=== PATIENT | female | born 1960 | race Hispanic/Latino ===

== ENCOUNTER 2024-11-10 07:25 | Emergency (ER) | payer MEDICARE, MEDICAID ==
[~2024-11-10] VITALS: Ht 121.9 cm; Wt 47.7 kg
[2024-11-10 08:52] LABS: BASO % 0.5 % (0.0-1.0); EOS # 0.1 10^3/uL (0.0-0.5); EOS % 1.1 % (0.0-3.0); HEMOGLOBIN 15.3 g/dl (12.0-15.5); LYMPH # 0.6 10^3/uL (1.5-5.0); LYMPH % 11.4 % (24.0-44.0); MEAN CORPUSCULAR HEMOGLOBIN 32.7 pg (27.0-33.0); MEAN CORPUSCULAR VOLUME 96.2 fl (80.0-96.0); MONO # 0.4 10^3/uL (0.0-0.8); MONO % 6.7 % (2.0-8.0); NEUTROPHILS # 4.5 10^3/uL (1.5-8.5); NEUTROPHILS % 79.8 % (36.0-66.0); PLATELET COUNT, AUTOMATED 189 10^3/uL (150-450); RED BLOOD COUNT 4.68 10^6/uL (4.00-5.40); WHITE BLOOD COUNT 5.6 10^3/uL (4.0-10.0)
[2024-11-10] MEDS ORDERED: MULT400T10 PO (08:58)
[2024-11-10] MEDS ORDERED: OYST500T12 PO (09:05)
[2024-11-10] MEDS ORDERED: FLON1SPR NARES (09:05)
[2024-11-10] MEDS ORDERED: GENT1SOL17 OU (09:05)
[2024-11-10] MEDS ORDERED: LORA-1041 PO (09:05)
[2024-11-10] MEDS ORDERED: FAMO20TA PO (09:05)
[2024-11-10] MEDS ORDERED: RALO1TAB PO (09:05)
[2024-11-10] MEDS ORDERED: LEVO75TA4 PO (09:05)
[2024-11-10] MEDS ORDERED: DEBR6.5S4 OTIC (09:24)
[2024-11-10] MEDS ORDERED: BISA10SU PR (09:24)
[2024-11-10] MEDS ORDERED: ACET1TAB55 PO (09:24)
[2024-11-10] MEDS ORDERED: IBUP-1114 PO (09:24)
[2024-11-10] MEDS ORDERED: BACI500O8 TOP (09:24)
[2024-11-10] MEDS ORDERED: ACET650S3 PR (09:24)
[2024-11-10] MEDS ORDERED: MILKSUS3 PO (09:24)
[2024-11-10] MEDS ORDERED: POLYTRIM OP (09:24)
[2024-11-10] MEDS ORDERED: PROC2.5C TOP (09:24)
[2024-11-10] MEDS ORDERED: [UNRECOGNIZED DRUG - CODE] TOP (09:24)
[2024-11-10] MEDS ORDERED: FLEEENE12 PR (09:24)
[2024-11-10] MEDS ORDERED: LAMI1SPR EXT (09:28)
[2024-11-10] MEDS: NS 500 ML IV ONE (09:30)
[2024-11-10] MEDS ORDERED: HOME MED LIST COMPLETE! XX SCH (09:35)
[2024-11-10 10:33] LABS: BLOOD UREA NITROGEN 19 MG/DL (9-23); CALCIUM LEVEL 8.7 MG/DL (8.3-10.6); CARBON DIOXIDE LEVEL 31 MMOL/L (20-31); CHLORIDE LEVEL 101 MMOL/L (98-107); CREATININE FOR GFR 0.78 MG/DL (0.55-1.30); GLOMERULAR FILTRATION RATE > 60.0 (>45); GLUCOSE, FASTING 109 MG/DL (74-106); SODIUM LEVEL 140 MMOL/L (136-145); THYROID STIMULATING HORMONE 5.738 uIU/ML (0.55-4.78)
[2024-11-10] MEDS ORDERED: ISOVUE-370 76% 100ML VIAL As Ordered ONE (14:53)
[2024-11-10 16:12] VITALS: BP 113/72; TEMP 98.6; O2SAT 97
== END 2024-11-10 17:04 | disposition home or self-care (01) ==
LOC: M ED 07:25 → EDBD 07:25 → M ED 17:04
DX: R55 Syncope and collapse (principal); E03.9 Hypothyroidism, unspecified; C50.919 Malignant neoplasm of unspecified site of unspecified female breast; Q90.9 Down syndrome, unspecified; G31.89 Other specified degenerative diseases of nervous system; Z79.1 Long term (current) use of non-steroidal anti-inflammatories (NSAID); Z79.52 Long term (current) use of systemic steroids; Z79.899 Other long term (current) drug therapy
CPT/HCPCS: 36415; 70450; 71275; 80048; 84443; 84484; 85025; 85379; 93005; 93041; 94760; 99285; Q9967

== ENCOUNTER → 2024-11-23 | Outpatient (REF) | payer MEDICARE, MEDICAID ==
[~2024-11-23] MED LIST: ACET1TAB55 PO; ACET650S3 PR; BACI500O8 TOP; BISA10SU PR; DEBR6.5S4 OTIC; FAMO20TA PO; FLEEENE12 PR; FLON1SPR NARES; GENT1SOL17 OU; IBUP-1114 PO; LAMI1SPR EXT; LEVO75TA4 PO; LORA-1041 PO; MILKSUS3 PO; MULT400T10 PO; OYST500T12 PO; POLYTRIM OP; PROC2.5C TOP; RALO1TAB PO; [UNRECOGNIZED DRUG - CODE] TOP
== END ==
LOC: M LAB REF 12:01
PROVIDERS: ATTEND Physician Assistant
DX: R30.0 Dysuria (principal)

== ENCOUNTER → 2025-02-22 | Outpatient (CLI) | payer MEDICARE, MEDICAID | LOC: M RAD 14:04 | PROVIDERS: ATTEND Psychiatry & Neurology Neurology | DX: G40.309 Generalized idiopathic epilepsy and epileptic syndromes, not intractable, without status epilepticus (principal); Q90.9 Down syndrome, unspecified; G30.0 Alzheimer's disease with early onset ==

== ENCOUNTER → 2025-05-03 | Outpatient (CLI) | payer MEDICARE, MEDICAID ==
[2025-05-03 18:47] LABS: BASO # 0.1 10^3/uL (0.0-0.2); BASO % 0.9 % (0.0-1.0); EOS # 0.1 10^3/uL (0.0-0.5); EOS % 2.0 % (0.0-3.0); LYMPH # 2.1 10^3/uL (1.5-5.0); LYMPH % 38.7 % (24.0-44.0); MONO # 0.4 10^3/uL (0.0-0.8); MONO % 7.6 % (2.0-8.0); NEUTROPHILS # 2.6 10^3/uL (1.5-8.5); NEUTROPHILS % 48.9 % (36.0-66.0); PLATELET COUNT, AUTOMATED 244 10^3/uL (150-450)
[2025-05-03 19:21] LABS: VALPROIC ACID (DEPAKOTE) 58.1 UG/ML (50.0-100.0)
[2025-05-03 19:23] LABS: ALT/SGPT 14.0 U/L (7.0-40); AST/SGOT 22.0 U/L (<34); CALCIUM LEVEL 8.6 MG/DL (8.3-10.6); CARBON DIOXIDE LEVEL 33.0 MMOL/L (20-31); CHLORIDE LEVEL 101.0 MMOL/L (98-107); CREATININE FOR GFR 0.84 MG/DL (0.55-1.30); GLOMERULAR FILTRATION RATE 76.1 (>45); POTASSIUM SERUM 4.6 MMOL/L (3.5-5.1); SODIUM LEVEL 140.0 MMOL/L (136-145)
== END ==
LOC: M WUC 15:04
PROVIDERS: ATTEND Psychiatry & Neurology Neurology
DX: R56.9 Unspecified convulsions (principal)

== ENCOUNTER → 2025-05-16 | Outpatient (CLI) | payer MEDICARE, MEDICAID | LOC: M WHC 12:59 | PROVIDERS: ATTEND Physician Assistant | DX: R92.2 Inconclusive mammogram (principal) ==

== ENCOUNTER → 2025-07-06 | Outpatient (CLI) | payer MEDICARE, MEDICAID ==
[2025-07-06 12:59] LABS: BASO # 0.0 10^3/uL (0.0-0.2); BASO % 1.0 % (0.0-1.0); EOS # 0.1 10^3/uL (0.0-0.5); EOS % 1.8 % (0.0-3.0); LYMPH # 1.8 10^3/uL (1.5-5.0); LYMPH % 46.3 % (24.0-44.0); MONO # 0.4 10^3/uL (0.0-0.8); MONO % 9.6 % (2.0-8.0); NEUTROPHILS # 1.6 10^3/uL (1.5-8.5); NEUTROPHILS % 39.0 % (36.0-66.0); PLATELET COUNT, AUTOMATED 233 10^3/uL (150-450)
[2025-07-06 13:34] LABS: VALPROIC ACID (DEPAKOTE) 94.2 UG/ML (50.0-100.0)
[2025-07-06 13:35] LABS: ALT/SGPT 16.0 U/L (7.0-40); AST/SGOT 24.0 U/L (<34); CALCIUM LEVEL 8.6 MG/DL (8.3-10.6); CARBON DIOXIDE LEVEL 32.0 MMOL/L (20-31); CHLORIDE LEVEL 101.0 MMOL/L (98-107); CREATININE FOR GFR 0.95 MG/DL (0.55-1.30); GLOMERULAR FILTRATION RATE 65.7 (>45); POTASSIUM SERUM 4.4 MMOL/L (3.5-5.1); SODIUM LEVEL 141.0 MMOL/L (136-145)
== END ==
LOC: M WUC 08:34
PROVIDERS: ATTEND Psychiatry & Neurology Neurology
DX: R56.9 Unspecified convulsions (principal)